=== PATIENT | female | born 1980 | race American Indian/Alaskan Native ===

== ENCOUNTER 2021-05-11 13:03 | Emergency (ER) | payer MEDICAID ==
--- NOTE | 2021-05-11 14:00 | EDM.PDOC ---
ED HPI GENERAL MEDICAL PROBLEM - General Chief Complaint: Flank Pain Stated Complaint: KIDNEY PAIN Time Seen by Provider: 05/11/21 14:00 - History of Present Illness INITIAL COMMENTS - FREE TEXT/NARRATIVE: 40-year-old female presents the emergency room with what she thinks is a kidney stone. Patient's had multiple kidney stones in the past most of these been worked up in the [facility] area. She has had. Patient denies any fevers but she has been chilled at times. Stents placed in the past as well. This is been going on for the last couple of days. The patient is hoping it would get better. However it is staying the same not improving. She has pain that shoots down her flank and into her thigh near the groin. She has had some intermittent nausea no vomiting. Left Flank Pain Score (Numeric/FACES): 8 - Related Data Allergies Allergy/AdvReac Type Severity Reaction Status Date / Time ketorolac [From Toradol] Allergy Joint Pain Verified 05/11/21 13:39 Home Meds: Home Meds Orphenadrine [Norflex] 100 mg PO BID #10 tab 05/11/21 [Rx] Past Medical History [employer] History: Reports: - Past Surgical History GI Surgical History: Reports: Cholecystectomy Social & Family History - Tobacco Use Tobacco Use Status *Q: Light Tobacco User Years of Tobacco use: 10 Packs/Tins Daily: 0.1 - Caffeine Use Caffeine Use: Reports: Energy Drinks, Soda - Recreational Drug Use Recreational Drug Use: Yes Recreational Drug Type: Reports: Marijuana/Hashish ED ROS GENERAL - Review of Systems Review Of Systems: See Below Constitutional: Reports: Chills. Denies: Fever HEENT: Reports: No Symptoms Respiratory: Reports: No Symptoms Cardiovascular: Reports: No Symptoms Endocrine: Reports: No Symptoms GI/Abdominal: Reports: Abdominal Pain : Reports: Flank Pain. Denies: Dysuria, Frequency, Hematuria, Urgency Musculoskeletal: Reports: Back Pain Skin: Reports: No Symptoms Neurological: Reports: No Symptoms ED EXAM, GENERAL - Physical Exam Exam: See Below Exam Limited By: No Limitations General Appearance: Alert, No Apparent Distress, Other (Patient is obviously in some pain but she is alert and very cooperative answers questions appropriately) Head: Atraumatic, Normocephalic Neck: Normal Inspection, Supple, Non-Tender, Full Range of Motion. No: Lymphadenopathy (L), Lymphadenopathy (R) Respiratory/Chest: No Respiratory Distress, Lungs Clear, Normal Breath Sounds Cardiovascular: Regular Rate, Rhythm, No Edema, No Murmur GI/Abdominal: Normal Bowel Sounds, Soft, Other (He has some left-sided abdominal discomfort this is not worsened with palpation no suprapubic discomfort no guarding rebound or rigidity noted) Back Exam: Normal Inspection, CVA Tenderness (L). No: CVA Tenderness (R) Extremities: Normal Inspection, No Pedal Edema Course - Vital Signs Last Recorded V/S: Last Vital Signs Temp 35.5 C L 05/11/21 13:37 Pulse 60 05/11/21 13:37 Resp 20 05/11/21 13:37 BP 172/85 H 05/11/21 13:37 Pulse Ox 99 05/11/21 13:37 - Orders/Labs/Meds Labs: Laboratory Tests 05/11/21 05/11/21 05/11/21 Range/Units 13:35 13:42 13:42 WBC 8.85 (3.98-10.04) K/mm3 RBC 4.83 (3.98-5.22) M/mm3 Hgb 9.4 L (11.2-15.7) gm/dl Hct 32.7 L (34.1-44.9) % MCV 67.7 L (79.4-94.8) fl MCH 19.5 L (25.6-32.2) pg MCHC 28.7 L (32.2-35.5) g/dl RDW Std Deviation 43.5 (36.4-46.3) fL Plt Count 397 H (182-369) K/mm3 MPV 9.3 L (9.4-12.3) fl Neutrophils % (Manual) 59 (40-60) % Band Neutrophils % 2 (0-10) % Lymphocytes % (Manual) 29 (20-40) % Atypical Lymphs % 0 % Monocytes % (Manual) 4 (2-10) % Eosinophils % (Manual) 6 H (0.7-5.8) % Basophils % (Manual) 0 L (0.1-1.2) Platelet Estimate Adequate Plt Morphology Comment Normal Polychromasia 1+ slight Hypochromasia 2+ moderate Microcytosis 3+ marked RBC Morph Comment Abnormal Sodium 140 (136-145) mEq/L Potassium 3.7 (3.5-5.1) mEq/L Chloride 107 (98-107) mEq/L Carbon Dioxide 24 (21-32) mEq/L Anion Gap 12.7 (5-15) BUN 11 (7-18) mg/dL Creatinine 0.8 (0.55-1.02) mg/dL Est Cr Clr Drug Dosing 72.45 mL/min Estimated GFR (MDRD) > 60 (>60) mL/min BUN/Creatinine Ratio 13.8 L (14-18) Glucose 100 H (70-99) mg/dL Calcium 10.5 H (8.5-10.1) mg/dL Total Bilirubin 0.2 (0.2-1.0) mg/dL AST 14 L (15-37) U/L ALT 25 (14-59) U/L Alkaline Phosphatase 102 (46-116) U/L Total Protein 7.6 (6.4-8.2) g/dl Albumin 3.5 (3.4-5.0) g/dl Globulin 4.1 gm/dL Albumin/Globulin Ratio 0.9 L (1-2) Urine Color Yellow (Yellow) Urine Appearance Clear (Clear) Urine pH 6.0 (5.0-8.0) Ur Specific Hoagland > or = 1.030 (1.005-1.030) Urine Protein Negative (Negative) Urine Glucose (UA) Negative (Negative) Urine Ketones Negative (Negative) Urine Occult Blood Negative (Negative) Urine Nitrite Negative (Negative) Urine Bilirubin Negative (Negative) Urine Urobilinogen 0.2 (0.2-1.0) Ur Leukocyte Esterase Negative (Negative) Urine HCG, Qual (NEGATIVE) 05/11/21 Range/Units 14:08 WBC (3.98-10.04) K/mm3 RBC (3.98-5.22) M/mm3 Hgb (11.2-15.7) gm/dl Hct (34.1-44.9) % MCV (79.4-94.8) fl MCH (25.6-32.2) pg MCHC (32.2-35.5) g/dl RDW Std Deviation (36.4-46.3) fL Plt Count (182-369) K/mm3 MPV (9.4-12.3) fl Neutrophils % (Manual) (40-60) % Band Neutrophils % (0-10) % Lymphocytes % (Manual) (20-40) % Atypical Lymphs % % Monocytes % (Manual) (2-10) % Eosinophils % (Manual) (0.7-5.8) % Basophils % (Manual) (0.1-1.2) Platelet Estimate Plt Morphology Comment Polychromasia Hypochromasia Microcytosis RBC Morph Comment Sodium (136-145) mEq/L Potassium (3.5-5.1) mEq/L Chloride (98-107) mEq/L Carbon Dioxide (21-32) mEq/L Anion Gap (5-15) BUN (7-18) mg/dL Creatinine (0.55-1.02) mg/dL Est Cr Clr Drug Dosing mL/min Estimated GFR (MDRD) (>60) mL/min BUN/Creatinine Ratio (14-18) Glucose (70-99) mg/dL Calcium (8.5-10.1) mg/dL Total Bilirubin (0.2-1.0) mg/dL AST (15-37) U/L ALT (14-59) U/L Alkaline Phosphatase (46-116) U/L Total Protein (6.4-8.2) g/dl Albumin (3.4-5.0) g/dl Globulin gm/dL Albumin/Globulin Ratio (1-2) Urine Color (Yellow) Urine Appearance (Clear) Urine pH (5.0-8.0) Ur Specific Hoagland (1.005-1.030) Urine Protein (Negative) Urine Glucose (UA) (Negative) Urine Ketones (Negative) Urine Occult Blood (Negative) Urine Nitrite (Negative) Urine Bilirubin (Negative) Urine Urobilinogen (0.2-1.0) Ur Leukocyte Esterase (Negative) Urine HCG, Qual Negative (NEGATIVE) Meds: Medications Discontinued Medications Generic Name Dose Route Start Last Admin Trade Name Freq PRN Reason Stop Dose Admin Fentanyl 50 mcg 05/11/21 14:14 05/11/21 14:20 Fentanyl 100 Mcg/2 Ml Sdv IVPUSH 05/11/21 14:15 50 mcg ONETIME ONE Administration Ondansetron HCl 4 mg 05/11/21 14:15 05/11/21 14:20 Ondansetron 4 Mg/2 Ml Sdv IVPUSH 05/11/21 14:16 4 mg ONETIME ONE Administration - Re-Assessments/Exams Free Text/Narrative Re-Assessment/Exam: 05/11/21 14:16 Give her fentanyl 50 mcg now and Zofran 4 mg now for her discomfort. Labs ordered and will proceed to a CT KUB. 05/11/21 16:25 Work-up is essentially unremarkable CT does not show a stone she has her back pain I am wondering if this could be related to some muscle spasm was going to try her on some Norflex. Departure - Departure Time of Disposition: 16:26 Disposition: Home, Self-Care 01 Clinical Impression: Lumbar strain - Discharge Information Referrals: PCP,None [Primary Care Provider] - Forms: ED Department Discharge Additional Instructions: Return to the emergency room with any questions problems or worsening symptoms. Establish with a local physician try the [facility] [phone] We are going to treat this like a muscle spasm and start you on a muscle relaxant you have been started on Norflex take 1 twice daily. This was sent electronically to the [place] pharmacy in the [employer]. Allow 12 hours after using this medication before driving and returning to work. Sepsis Event Note (ED) - Focused Exam Vital Signs: Vital Signs Temp Pulse Resp BP Pulse Ox 05/11/21 13:37 35.5 C L 60 20 172/85 H 99
[2021-05-11] MEDS ORDERED: fentaNYL 100 MCG/2 ML SDV IVPUSH ONE (14:14)
[2021-05-11] MEDS ORDERED: Ondansetron 4 MG/2 ML SDV IVPUSH ONE (14:15)
--- NOTE | 2021-05-11 14:59 | CT ---
CT abdomen and pelvis Technique: Multiple axial sections were obtained from above the dome of the diaphragm inferiorly through the pubic symphysis. Intravenous and oral contrast were not utilized. Study has been performed as a ureteral stone protocol. Reconstructed coronal and sagittal images were obtained. Comparison: No prior abdominal imaging is available. Findings: Right and left kidneys show no hydronephrosis. No ureteral dilatation or ureteral calculi are seen. Visualized lung bases show very minimal atelectasis. No acute parenchymal change is appreciated. Noncontrast appearance of the liver shows no focal parenchymal abnormality. Spleen size is normal. Surgical clips are seen from prior cholecystectomy. Adrenal glands show no nodule. Pancreas shows no discrete abnormality. Abdominal aorta shows mild atherosclerotic calcification. No aneurysm is seen. No retroperitoneal adenopathy is noted. No mesenteric abnormalities are seen. Appendix is seen which is normal. No pelvic mass or adenopathy is appreciated. Single surgical clip is seen within the left side of the pelvis. No free fluid or inflammatory change is appreciated. Bone window settings were reviewed. No acute osseous abnormality is appreciated. Impression: 1. No renal calculi, ureteral dilatation or ureteral stone is seen. 2. Previous surgery within the pelvis with single surgical clip being seen. 3. Nothing acute is appreciated on noncontrast CT study of the abdomen and pelvis. Diagnostic code #2
[2021-05-11] MEDS ORDERED: Orphenadrine 100 MG Tab.ER PO ONE (16:26)
== END 2021-05-11 17:00 | disposition home or self-care (01) ==
LOC: JD.ED 13:03
DX: S39.012A Strain of muscle, fascia and tendon of lower back, initial encounter (principal); Z88.6 Allergy status to analgesic agent; Z72.0 Tobacco use; Z90.49 Acquired absence of other specified parts of digestive tract; X58.XXXA Exposure to other specified factors, initial encounter
CPT/HCPCS: 36415; 74176; 80053; 81003; 81025; 85007; 85027; 96374; 96375; 99284; A9270; J2405; J3010